=== PATIENT | male | born 1960 | race African-American/Black ===

== ENCOUNTER 2022-07-25 21:06 | Inpatient (IN) | payer OTHER ==
[~2022-07-25] VITALS: Ht 175.3 cm; Wt 74.0 kg
[2022-07-25 23:40] LABS: Basophils # (auto) 0 10 ^3/uL (0-0.2); Hemoglobin 12.8 g/dL (13.5-17.5); Monocytes # (auto) 0.5 10 ^3/uL (0-1.3); Neutrophils # (auto) 3.6 10 ^3/uL (1.6-8.6); Nucleated Red Blood Cells % 0.2 %
[2022-07-25 23:42] LABS: Basophils % (auto) 0.5 % (0.0-2.0); Eosinophils # (auto) 0.1 10 ^3/uL (0-0.8); Eosinophils % (auto) 2.5 % (0.0-7.0); Hematocrit 39.1 % (41.0-53.0); Lymphocytes % (auto) 19.9 % (10.0-50.0); Mean Corpuscular Hemoglobin 24.1 pg (28.0-32.0); Mean Corpuscular Hgb Conc. 32.8 g/dL (32.0-36.0); Mean Corpuscular Volume 73.3 fL (80.0-100.0); Monocytes % (auto) 8.8 % (0.0-12.0); Neutrophils % (auto) 68.3 % (37.0-80.0); Red Blood Cells 5.33 10^6/uL (4.5-5.90); White Blood Cell 5.2 10^3/uL (4.4-10.8)
[2022-07-25 23:54] LABS: Albumin 4.5 g/dL (3.4-5.0); BUN/Creatinine Ratio 14.4; Calcium 9.4 mg/dL (8.5-10.1); Potassium 3.2 mmol/L (3.5-5.1)
[2022-07-25 23:57] LABS: Bilirubin, Total 0.5 mg/dL (0.2-1.0); Total Protein 7.9 g/dL (6.4-8.2)
[2022-07-26] MEDS ORDERED: SODIUM CHL 3% 500 ML IV ONE (09:15)
[2022-07-26] MEDS ORDERED: SODIUM CHLORIDE 0.9% 1,000 ML IV ONE (09:15)
[2022-07-26] MEDS ORDERED: POTASSIUM EFFERVESENT TAB 25 MEQ PO ONE (09:15)
[2022-07-26] MEDS ORDERED: LORazepam 2MG/ML-1ML VIAL IV ONE (11:45)
[2022-07-26] MEDS ORDERED: MORPHINE SULFATE INJ 2 MG/ml SYRG IV PRN (14:15)
[2022-07-26] MEDS ORDERED: NITROGLYCERIN 0.4 MG SL TAB SL PRN (14:15)
[2022-07-26 17:20] LABS: Urine Bacteria NONE SEEN /hpf (None Seen); Urine Blood 3+ /uL (Negative); Urine Specific Gravity 1.011 (1.001-1.035); Urine WBC 1 /hpf (0 - 3)
[2022-07-26 17:36] LABS: Alcohol, Urine < 3.0 mg/dL (0-10); Amphetamine Screen, Urine NEGATIVE (NEGATIVE); Barbiturate Scree,Urine NEGATIVE (NEGATIVE); Benzodiazephine Screen, Urine NEGATIVE (NEGATIVE); Cannabinoid Screen, Urine NEGATIVE (NEGATIVE); Cocaine Screen, Urine NEGATIVE (NEGATIVE); Opiate Scree,Urine NEGATIVE (NEGATIVE); Phencyclidine Screen, Urine NEGATIVE (NEGATIVE)
[2022-07-26] MEDS: SODIUM CHLORIDE 0.9% 1,000 ML IV SCH (21:28)
[2022-07-27] VITALS (8 sets, daily range): BP systolic 139–154; BP diastolic 78–91
[2022-07-27] MEDS: NAPROXEN 500 MG TAB PO PRN ×2 (00:28→13:55)
[2022-07-27] MEDS: SODIUM CHLORIDE 0.9% 1,000 ML IV SCH ×3 (03:00→23:00)
[2022-07-27] MEDS: LORazepam 2MG/ML-1ML VIAL IV PRN ×2 (03:19→13:55)
[2022-07-27 05:21] LABS: Basophils # (auto) 0 10 ^3/uL (0-0.2); Eosinophils # (auto) 0.3 10 ^3/uL (0-0.8); Monocytes # (auto) 0.5 10 ^3/uL (0-1.3); Neutrophils # (auto) 3.1 10 ^3/uL (1.6-8.6); White Blood Cell 4.7 10^3/uL (4.4-10.8)
[2022-07-27 05:25] LABS: Basophils % (auto) 0.9 % (0.0-2.0); Eosinophils % (auto) 5.8 % (0.0-7.0); Hematocrit 35.3 % (41.0-53.0); Hemoglobin 11.9 g/dL (13.5-17.5); Lymphocytes # (auto) 0.7 10 ^3/uL (0.4-5.4); Lymphocytes % (auto) 15.4 % (10.0-50.0); Mean Corpuscular Hemoglobin 24.7 pg (28.0-32.0); Mean Corpuscular Hgb Conc. 33.8 g/dL (32.0-36.0); Monocytes % (auto) 11.3 % (0.0-12.0); Neutrophils % (auto) 66.6 % (37.0-80.0); Nucleated Red Blood Cells % 0.1 %; Red Blood Cells 4.83 10^6/uL (4.5-5.90); Red Cell Distribution Width 15.7 % (11.8-14.3)
[2022-07-27 05:36] LABS: Calcium 8.5 mg/dL (8.5-10.1); Potassium 3.2 mmol/L (3.5-5.1)
[2022-07-27 05:42] LABS: Albumin 3.8 g/dL (3.4-5.0); BUN/Creatinine Ratio 18.5; Bilirubin, Total 0.3 mg/dL (0.2-1.0); Total Protein 6.8 g/dL (6.4-8.2)
[2022-07-27] MEDS: ENOXAPARIN SOD 40 MG/0.4 ML SYRINGE SC SCH (09:54)
[2022-07-27] MEDS ORDERED: POTASSIUM CHL 20 Meq TABLET PO ONE (13:15)
[2022-07-27] MEDS ORDERED: IOHEXOL 350 MG/ML 100ML IJ ONE (16:30)
[2022-07-27] MEDS ORDERED: cloNIDine HCL 0.1 MG TAB PO PRN (19:00)
[2022-07-27] MEDS ORDERED: amLODIPine BESYLATE 5 MG TAB PO ONE (19:00)
[2022-07-28] MEDS: NAPROXEN 500 MG TAB PO PRN ×2 (04:39→18:35)
[2022-07-28 04:45] VITALS: BP 150/92
[2022-07-28 06:51] LABS: Potassium 3.9 mmol/L (3.5-5.1)
[2022-07-28 07:00] LABS: Albumin 3.8 g/dL (3.4-5.0); BUN/Creatinine Ratio 16.2; Bilirubin, Total 0.4 mg/dL (0.2-1.0); Calcium 8.8 mg/dL (8.5-10.1); Total Protein 6.9 g/dL (6.4-8.2)
[2022-07-28 08:00] VITALS: BP 152/86
[2022-07-28] MEDS: ENOXAPARIN SOD 40 MG/0.4 ML SYRINGE SC SCH (08:19)
[2022-07-28] MEDS: SODIUM CHLORIDE 0.9% 1,000 ML IV SCH ×2 (09:00→16:57)
[2022-07-28] MEDS ORDERED: amLODIPine BESYLATE 5 MG TAB PO SCH (10:00)
[2022-07-28] MEDS ORDERED: ONDANSETRON HCL 4 MG/2 ML VIAL IV PRN (12:45)
[2022-07-28 14:17] VITALS: BP 154/74
[2022-07-28 16:32] VITALS: BP 164/89
[2022-07-28] MEDS ORDERED: FUROSEMIDE 40 MG TAB PO ONE (16:45)
[2022-07-28] MEDS ORDERED: POTASSIUM CHL 20 Meq TABLET PO ONE (16:45)
[2022-07-28] MEDS: amLODIPine BESYLATE 5 MG TAB PO SCH (16:48)
[2022-07-28 17:56] LABS: BUN/Creatinine Ratio 12.8; Calcium 9.2 mg/dL (8.5-10.1)
[2022-07-28 22:00] VITALS: BP 146/92
[2022-07-28] MEDS ORDERED: THIAMINE 100mg/ml INJ (200mg/2ml VIAL) IM SCH (22:00)
[2022-07-28 22:02] LABS: Cholesterol 131 mg/dL (< 200)
[2022-07-28 22:04] LABS: HDL Cholesterol 82 mg/dL (40-59); LDL Cholesterol 45 mg/dL (< 100); Triglycerides 75 mg/dL (< 150)
[2022-07-28] MEDS: ATORVASTATIN 20 MG TAB PO SCH (22:42)
[2022-07-28] MEDS: THIAMINE 100mg/ml INJ (200mg/2ml VIAL) IM SCH (22:51)
[2022-07-29] MEDS: SODIUM CHLORIDE 0.9% 1,000 ML IV SCH (02:14)
[2022-07-29 05:45] VITALS: BP 117/62
[2022-07-29 06:33] LABS: BUN/Creatinine Ratio 10.3; Calcium 9.2 mg/dL (8.5-10.1); Potassium 3.4 mmol/L (3.5-5.1)
[2022-07-29] MEDS: ATORVASTATIN 20 MG TAB PO SCH ×2 (08:14→22:26)
[2022-07-29] MEDS: amLODIPine BESYLATE 5 MG TAB PO SCH (08:14)
[2022-07-29] MEDS: ASPirin 81 mg TAB PO SCH (08:15)
[2022-07-29] MEDS: ENOXAPARIN SOD 40 MG/0.4 ML SYRINGE SC SCH (08:15)
[2022-07-29 09:00] VITALS: BP 193/67
[2022-07-29] MEDS ORDERED: SODIUM CHL 3% 500 ML IV ONE (09:45)
[2022-07-29] MEDS ORDERED: POTASSIUM CHL 20 Meq TABLET PO ONE (09:45)
[2022-07-29] MEDS: OLANZapine 5 MG TAB PO SCH ×2 (10:21→22:26)
[2022-07-29 13:00] VITALS: BP 139/77
[2022-07-29 17:09] VITALS: BP 122/71
[2022-07-29 22:00] VITALS: BP 111/52
[2022-07-30] MEDS: SODIUM CHLORIDE 0.9% 1,000 ML IV SCH ×2 (01:24→11:33)
[2022-07-30 05:00] VITALS: BP 134/68
[2022-07-30 06:00] LABS: Calcium 8.5 mg/dL (8.5-10.1); Potassium 4.3 mmol/L (3.5-5.1)
[2022-07-30 06:03] LABS: BUN/Creatinine Ratio 14.5
[2022-07-30 08:05] VITALS: BP 156/93
[2022-07-30 09:00] VITALS: BP 156/93
[2022-07-30] MEDS: ASPirin 81 mg TAB PO SCH (10:33)
[2022-07-30] MEDS: THIAMINE 100mg/ml INJ (200mg/2ml VIAL) IM SCH (10:33)
[2022-07-30] MEDS: OLANZapine 5 MG TAB PO SCH (10:34)
[2022-07-30] MEDS: ENOXAPARIN SOD 40 MG/0.4 ML SYRINGE SC SCH (10:34)
[2022-07-30] MEDS: amLODIPine BESYLATE 5 MG TAB PO SCH (10:34)
[2022-07-30] MEDS: NAPROXEN 500 MG TAB PO PRN (10:35)
[2022-07-30] MEDS ORDERED: AML5T PO (12:26)
[2022-07-30] MEDS ORDERED: OLAN1TAB7 PO (12:26)
[2022-07-30 14:54] VITALS: BP 143/76
[2022-08-01 16:15] LABS: Hepatitis A Ab IgM Negative; Hepatitis B Core IgM Negative
[2022-08-01 16:16] LABS: Hepatitis C Antibody Negative (Negative)
== END 2022-07-30 16:05 | DRG 948 ==
LOC: ER 21:06 → EDBD 21:06 → EEVIPCON 21:06 → TELE 07-26 14:18 → TELE-WESTW 07-26 21:34
PROVIDERS: ADMIT Internal Medicine; ATTEND Internal Medicine
DX: R41.82 Altered mental status, unspecified (principal); E87.1 Hypo-osmolality and hyponatremia; F29 Unspecified psychosis not due to a substance or known physiological condition; E87.6 Hypokalemia; K75.9 Inflammatory liver disease, unspecified; F10.10 Alcohol abuse, uncomplicated; F12.90 Cannabis use, unspecified, uncomplicated; Z20.822 Contact with and (suspected) exposure to COVID-19; F14.10 Cocaine abuse, uncomplicated; I10 Essential (primary) hypertension; F17.200 Nicotine dependence, unspecified, uncomplicated; Z79.899 Other long term (current) drug therapy; Z82.49 Family history of ischemic heart disease and other diseases of the circulatory system; F20.9 Schizophrenia, unspecified
CPT/HCPCS: 36415; 70450; 70496; 80048; 80053; 80061; 80074; 80307; 81001; 84484; 85025; 87086; 93005; 93306; 95819; 96361; 96374; G0378; J2405